=== PATIENT | female | born 1995 | race Caucasian/White ===

== ENCOUNTER → 2017-04-18 03:05 | Observation (INO) ==
[2017-04-18 01:00] LABS: Bilirubin,Urine Negative (Negative); Blood,Urine Negative (Negative); Clarity,Urine Clear (Clear); Color,Urine Yellow (Yellow); Glucose,Urine (UA) Normal (Normal); Ketones,Urine Negative (Negative); Leukocyte Esterase,Urine Negative (Negative); Nitrite,Urine Negative (Negative); Protein,Urine Negative (Neg-Trace); Specific Gravity,Urine 1.006 (1.010-1.025); Urobilinogen,Urine Normal (Normal)
[2017-04-18 01:06] LABS: Amphetamine Screen,Urine Negative ng/mL (Cutoff=1000); Barbiturate Screen,Urine Negative ng/mL (Cutoff=200); Benzodiazepines Screen,Urine Negative ng/mL (Cutoff=200); Cannabinoid Screen,Urine Negative ng/mL (Cutoff = 50); Cocaine Screen,Urine Negative ng/mL (Cutoff= 300); Opiate Screen,Urine Negative ng/mL (Cutoff=300); Phencyclidine Screen,Urine Negative ng/mL (Cutoff=25)
--- NOTE | 2017-04-18 01:59 | OB/GYN Progress Note ---
Date of Encounter: 04/18/17 Time of Encounter: 01:56 - Assessment and Plan (1) 38 weeks gestation of Current Visit: No Status: Acute Place on observation for labor evaluation. Monitor FHTs, contractions, serial cervical exams. If no cervical change, will discharge home with precautions. Subjective - Subjective Principal diagnosis: Uterine Contractions Interval history: Shanita Albert, 22, , at 38+3, presents with new onset contractions, intermittent every few minutes. Pt reports good movement of Tracy. Denies loss of fluid, no spontaneous rupture of membranes. GBS negative, blood type B positive. Antepartum ROS: movement normal, contractions, no loss of fluid, no vaginal bleeding Objective - Vital Signs Vital Signs: Intake and Output 04/17/17 04/17/17 04/18/17 15:59 23:59 07:59 Other: Weight 62.596 kg Patient Weight 04/18/17 23:59 Weight 62.596 kg - Exam FHR: auscultation normal, category 1 FHR comments: baseline 130. moderate variability. Auscultation: bilateral: normal Abdomen: Present: gravid Cervical dilation: 4 Cervix effacement: 80 station: -3 - Labs Labs: Abnormal lab results Ur Specific [place] 1.006 (1.010-1.025) L 04/18/17 00:45
--- NOTE | 2017-04-18 06:58 | Discharge Summary ---
Date of Encounter: 04/18/17 Time of Encounter: 02:58 - Discharge Diagnosis (1) 38 weeks gestation of Priority: Primary Status: Acute Comments: Patient admitted for labor evaluation (2) False labor Priority: Secondary Status: Acute Comments: No cervical change after 3 hours. Discharged home, follow up with Dr. Solorio as scheduled. - Discharge Medications Home Medications: No Known Home Drugs 04/18/17 [History] Allergies/Adverse Reactions: 3 Allergy/AdvReac Type Severity Reaction Status Date / Time No Known Allergies Allergy Verified 04/18/17 00:53 Data Procedures and tests throughout hospitalization: Laboratory Tests 04/18/17 04/18/17 00:45 00:45 Urine Color Yellow Urine Clarity Clear Urine pH 7.0 Ur Specific [place] 1.006 L Urine Protein Negative Urine Glucose (UA) Normal Urine Ketones Negative Urine Blood Negative Urine Nitrite Negative Urine Bilirubin Negative Urine Urobilinogen Normal Ur Leukocyte Esterase Negative Ur Culture Indicated? NO Urine Opiates Screen Negative Ur Barbiturates Screen Negative Ur Phencyclidine Scrn Negative Ur Amphetamines Screen Negative U Benzodiazepines Scrn Negative Urine Cocaine Screen Negative U Marijuana (THC) Screen Negative Labs on day of discharge: Labs from last 24 hours 04/18/17 04/18/17 00:45 00:45 Urine Color Yellow Urine Clarity Clear Urine pH 7.0 Ur Specific [place] 1.006 L Urine Protein Negative Urine Glucose (UA) Normal Urine Ketones Negative Urine Blood Negative Urine Nitrite Negative Urine Bilirubin Negative Urine Urobilinogen Normal Ur Leukocyte Esterase Negative Ur Culture Indicated? NO Urine Opiates Screen Negative Ur Barbiturates Screen Negative Ur Phencyclidine Scrn Negative Ur Amphetamines Screen Negative U Benzodiazepines Scrn Negative Urine Cocaine Screen Negative U Marijuana (THC) Screen Negative Date of admission: 04/18/17 00:22 Discharging clinician: Gina Ferrer Anticipated date of discharge: 04/18/17 - Patient Status Disposition: Home, Self-Care Condition: Good - Discharge Instructions Additional Instructions: LABOR AND DELIVERY DISCHARGE INSTRUCTIONS Signs and Symptoms to be Reported to your Doctor Immediately: * Sudden gush, continuous or intermittent lead of fluid from vagina (note the time of gush and color of fluid) * Onset of bright red vaginal bleeding with or without pain (if you had a vaginal exam during this visit you may notice some dark red spotting. This is normal.) * Contractions that are 5 minutes apart (from the beginning of one contraction to the beginning of the next) and last 45-60 seonds; contractions that you can no longer walk, talk or laugh through. * A change in the baby's activity. This could be an increase or decrease in activity. * Severe headache which does not go away with tylenol. * Sudden swelling in the face, hands, arms and/or legs. * Upper abdominal pain - sometimes associated with heartburn or nausea and is not relieved by Maalox, Mylanta or Tums. * Kick Counts __ One hour after a meal, lay down on one side in a quiet place. Count the number of time the baby moves during an hour. If less than 6 movements, notify your physician Diet: *Force fluids, 8 to 10 tall glasses of fluid per day - may include popsicles and jello *Limit caffeine - this includes chocolate, coffee, tea, any soft drink containing such as all jered, Román Yellow and Mountain Dew Hospital Course WRAPPER AND PRESERVER Time Attestation: Total time spent providing and/or coordinating discharge services: Time Spent: Less than 30 minutes Exam - Other Additional findings: assessed per RN
== END | disposition home or self-care (01) ==
LOC: 1NENULAB
PROVIDERS: ADMIT Advanced Practice Midwife; ATTEND Advanced Practice Midwife

== ENCOUNTER 2017-04-20 07:17 | Inpatient (IN) ==
[2017-04-20 05:04] LABS: Basophils % 0.2 %; Eosinophils # 0.2 K/mcL (0.0-0.6); Eosinophils % 1.2 %; Hematocrit 33.9 % (35.3-44.9); Hemoglobin 11.5 g/dL (11.5-15.4); Immature Granulocytes % 0.7 % (0-4); Lymphocytes % 23.9 %; Mean Corpuscular HGB Conc 33.9 g/dL (31.6-35.5); Mean Corpuscular Hemoglobin 30.7 pg (28.0-33.3); Mean Corpuscular Volume 90.6 fL (83.0-100.0); Mean Platelet Volume 12.5 fL (9.4-12.4); Monocytes % 6.2 %; Neutrophils # 11.3 K/mcL (1.6-8.9); Platelet Count 214 K/mcL (140-400); Red Blood Count 3.74 M/mcL (3.82-4.97); Red Cell Distribution Width 12.9 % (11.5-14.5); Segmented Neutrophils % 67.8 %
[2017-04-20 05:15] LABS: Amphetamine Screen,Urine Negative ng/mL (Cutoff=1000); Barbiturate Screen,Urine Negative ng/mL (Cutoff=200); Benzodiazepines Screen,Urine Negative ng/mL (Cutoff=200); Cannabinoid Screen,Urine Negative ng/mL (Cutoff = 50); Cocaine Screen,Urine Negative ng/mL (Cutoff= 300); Opiate Screen,Urine Negative ng/mL (Cutoff=300); Phencyclidine Screen,Urine Negative ng/mL (Cutoff=25)
--- NOTE | 2017-04-20 05:55 | OB/GYN Procedure Note ---
Delivery - Delivery Date: 04/20/17 Provider: Almas hSahid Intrapartum events: none Delivery induction: none Delivery monitor: external FHT, external uterine Anesthesia: none Estimated Blood Loss: 300 - (s) Infant A Infant Delivery Date: 04/20/17 Delivery Time: 05:03 Presentation: vertex Position: OA Route of delivery: Gender: Female Viability: Viable Pounds: 7 at 1 minute: 8 at 5 mins: 9 Shoulder Dystocia: not encountered Specimens collected: cord blood Placenta: spontaneous Cord: true knot - Repair Episiotomy: none Laceration Description: None - Complications Delivery complications: none - Disposition Mom disposition: stable in LDR [place] disposition: stable in LDR - Comments Comments: Patient delivered a live female spontaneously over an intact perineum. Weight was 7 pounds and Apgars were 8 and 9. Placenta delivered spontaneously intact. Estimated blood loss was 300 mL. Mother and baby were bonding in delivery room.
--- NOTE | 2017-04-20 06:50 | OB/GYN History & Physical ---
Date of Encounter: 04/21/17 Time of Encounter: 05:30 Assessment and Plan (1) 38 weeks gestation of Current visit: No Status: Deleted Admit to labor and delivery. GBS negative, O positive. Pt arrives in active labor at 9 cm dilation, anticipate with Dr. Shahid. History of Present Illness Chief complaint: Active Labor HPI: Ms. Albert is a 22 year old female, , at 38+5, presents with active labor, contractions 2-3 minutes apart and intensifying. Pt reports good movement of Tracy, SROM. Labs: GBS negative. Other serologies negative. Rubella and VZV immune. Blood type B positive. Past Med Surg Social Fam HX - Past Medical History Medical history: no medical history Psychiatric history: no psych history - Past Surgical History Surgical History: no surgical history - Social History Smoking Status: Current every day smoker Packs per day: 1/4 pack a day Smokeless Tobacco Status: No Alcohol use: none Drug use: none - Family History Mother Adopted: No Family Member Ethnicity: Non- Living Status: Still Living Hx Family Cardiac Disorders: No Hx Family Respiratory Disorders: No Hx Family Cancer: No Hx Family GI Disorders: No Hx Family Endocrine Disorder: Yes (diabetes) Hx Family Neuromuscular Disorders: No Hx Family Neurologic Disorders: No Hx Family HEENT Disorders: No Hx Family Autoimmune Disorders: No Obstetrical History - Pregnancies : 4 Medications and Allergies No Known Home Drugs 04/18/17 [History] Ibuprofen [Motrin] 600 mg PO Q6HR PRN #30 tab 04/21/17 [Rx] Vit/FA 1 each PO DAILY tab 04/21/17 [Rx] 3 Allergy/AdvReac Type Severity Reaction Status Date / Time No Known Allergies Allergy Verified 04/18/17 00:53 Review of System OB - Constitutional Constitutional ROS IM: no headache(s), no malaise - Cardiovascular Cardiovascular: no chest pain - Respiratory Respiratory: no dyspnea - Gastrointestinal Gastrointestinal: no abdominal pain Exam - Constitutional Constitutional: well developed, well nourished - Neck Neck exam: full ROM - Lungs Respiratory exam: CTAB - Cardiovascular Cardiovascular exam: +S1, +S2 - Cervix Dilation: 9 Effacement: 100 Results Result Diagrams: 04/21/17 04:15 Abnormal lab results WBC 16.7 K/mcL (4.3-11.1) H 04/20/17 04:09 RBC 3.74 M/mcL (3.82-4.97) L 04/20/17 04:09 Hct 33.9 % (35.3-44.9) L 04/20/17 04:09 MPV 12.5 fL (9.4-12.4) H 04/20/17 04:09 Neutrophils # 11.3 K/mcL (1.6-8.9) H 04/20/17 04:09 All other labs normal. - VTE Reasons for not Prescribing Prophylaxis: Treatment not Indicated - Low risk for VTE
[~2017-04-20 07:17] MED LIST: Acetaminophen 325 MG TABLET PO PRN; Famotidine 20 MG/2 ML VIAL IVP PRN; Measles/Mumps/Rubella Vacc 0.5 ML VIAL SQ PRN; Metoclopramide 10 MG/2 ML VIAL IVP PRN; Naloxone 0.4 MG/ML INJ IVP PRN; Ondansetron 4 MG/2 ML VIAL IVP PRN; Oxytocin 20 units/ LR 1000 mL 20 UNIT/1,000 ML BAG IVC ONE; Oxytocin 20 units/ LR 1000 mL 20 UNIT/1,000 ML BAG IVC SCH; Penicillin G Potassium 5,000,000 UNIT in D5% in Water (Mini-Bag+) 100 ML IVPB ONE; Ringers Solution, Lactated 1,000 ML IVC SCH
[2017-04-20] MEDS ORDERED: Ondansetron 4 MG/2 ML VIAL IVP PRN (07:18)
[2017-04-20] MEDS ORDERED: Naloxone 0.4 MG/ML INJ IVP PRN (07:18)
[2017-04-20] MEDS ORDERED: Metoclopramide 10 MG/2 ML VIAL IVP PRN (07:18)
[2017-04-20] MEDS ORDERED: Ringers Solution, Lactated 1,000 ML IVC SCH (07:18)
[2017-04-20] MEDS ORDERED: Oxytocin 20 units/ LR 1000 mL 20 UNIT/1,000 ML BAG IVC ONE (07:22)
[2017-04-20] MEDS ORDERED: Acetaminophen 325 MG TABLET PO PRN (07:28)
[2017-04-20] MEDS ORDERED: Oxytocin 20 units/ LR 1000 mL 20 UNIT/1,000 ML BAG IVC SCH (07:30)
[2017-04-20] MEDS ORDERED: Penicillin G Potassium 2,500,000 UNIT in D5% in Water 100 ML IVPB SCH (08:00)
[2017-04-20] MEDS: Ibuprofen 600 MG TABLET PO PRN ×2 (08:25→21:26)
[2017-04-20] MEDS ORDERED: Prenatal Vit/FA 1 EACH TABLET PO SCH ×2 (09:00)
[2017-04-21 04:37] LABS: Basophils % 0.2 %; Eosinophils # 0.2 K/mcL (0.0-0.6); Eosinophils % 1.2 %; Hematocrit 32.4 % (35.3-44.9); Immature Granulocytes % 0.8 % (0-4); Lymphocytes # 3.5 K/mcL (0.6-4.6); Lymphocytes % 19.9 %; Mean Corpuscular Hemoglobin 31.2 pg (28.0-33.3); Mean Corpuscular Volume 91.8 fL (83.0-100.0); Mean Platelet Volume 12.7 fL (9.4-12.4); Monocytes # 0.9 K/mcL (0.0-1.3); Monocytes % 4.8 %; Platelet Count 211 K/mcL (140-400); Red Blood Count 3.53 M/mcL (3.82-4.97); Segmented Neutrophils % 73.1 %
--- NOTE | 2017-04-21 07:48 | OB/GYN Progress Note ---
Date of Encounter: 04/21/17 Time of Encounter: 07:45 - Assessment and Plan (1) Status post vaginal delivery Current Visit: Yes Status: Acute (2) Family planning advice Current Visit: Yes Status: Acute will prep patient for bilateral partial salpingectomy this am Subjective - Subjective Interval history: patient still desires BPS states does not want any more children states having min cramping and min bleeding Patient reports: appetite normal, voiding normally, pain well controlled, ambulating normally : doing well Objective - Latest Vital Signs Latest vital signs: Vital Signs Temp Pulse Pulse Resp BP Pulse Ox 04/21/17 04:00 98.3 F 73 14 113/70 96 04/20/17 21:30 80 16 04/20/17 20:20 98.2 F 87 14 108/69 97 04/20/17 16:10 98.8 F 65 16 119/73 99 04/20/17 09:30 97.8 F 80 14 111/66 99 04/20/17 08:29 98.7 F 56 56 12 113/67 Intake and Output 04/20/17 04/20/17 04/21/17 15:59 23:59 07:59 Intake Total 1790 / 1790 Output Total 500 / 500 1750 / 1750 900 / 900 Balance -500 / -500 40 / 40 -900 / -900 Intake: Oral 1790 / 1790 Output: Urine 500 / 500 1750 / 1750 900 / 900 Other: Stool Characteristics Normal for Patient Weight 56.88 kg Patient Weight 04/21/17 23:59 Weight 56.88 kg - Exam Lungs: bilateral: normal Chest: Normal S1, Normal S2 Extremities: Present: normal Abdomen: Present: normal appearance, soft Uterus: Present: normal Uterus Position: At Umbilicus - Labs Labs: Laboratory Results - last 24 hr 04/21/17 04:15 WBC 17.7 H RBC 3.53 L Hgb 11.0 L Hct 32.4 L MCV 91.8 MCH 31.2 MCHC 34.0 RDW 13.0 Plt Count 211 MPV 12.7 H Immature Gran % 0.8 Seg Neutrophils % 73.1 Lymphocytes % 19.9 Monocytes % 4.8 Eosinophils % 1.2 Basophils % 0.2 Neutrophils # 13.0 H Lymphocytes # 3.5 Monocytes # 0.9 Eosinophils # 0.2 Basophils # 0.0
[2017-04-21] MEDS ORDERED: ceFAZolin 2,000 MG in D5% in Water (Mini-Bag+) 100 ML IVPB ONE (07:49)
--- NOTE | 2017-04-21 08:19 | Anesthesia Evaluation PreOp ---
Date of Encounter: 04/21/17 Time of Encounter: 08:17 - Past History Planned Operation: BPS Cardiac History: Denies any Significant Hx Pulmonary History: Smoker, Pack/yr (10) BILINGUAL SPEECH LANGUAGE PATHOLOGIST History: Denies Any Significant HX Other Medical History: Denies Any Significant HX Anesthesia History: No Prior Anesthetic Complications : No Alcohol Use: none Drug use: none Medications and Allergies No Known Home Drugs 04/18/17 [History] 3 Allergy/AdvReac Type Severity Reaction Status Date / Time No Known Allergies Allergy Verified 04/18/17 00:53 - Meds/Allergy Pre-op Review Medications Reviewed: Yes Allergies Reviewed: Yes Beta Blockers on Current Med List: No Anesthesia Results - Labs 04/21/17 04:15 Anesthesia Exam Height: 1.5m Weight: 56.8kg NPO (# of Hours): 9 Pain Scale: 0 Pain Scale Used: Numeric (1 - 10) - HEENT Pupil (Motor): Pupils equal Mallampati: I Teeth: Normal Oral Opening: Greater than 3 - BILINGUAL SPEECH LANGUAGE PATHOLOGIST LOC: Oriented BILINGUAL SPEECH LANGUAGE PATHOLOGIST Motor: Normal RUE, Normal LUE, Normal RLE, Normal LLE, Normal Face BILINGUAL SPEECH LANGUAGE PATHOLOGIST Sensory: Normal: RUE, LUE, RLE, LLE, Face - Cardiac Rhythm: Regular Murmur: None JVD: No Carotid Bruit: No - Pulmonary Breath Sounds: bilateral Clear Respiratory Effort: Symmetrical Anesthesia Assess/Plan ASA Score: 2 Modified [place] Scale for Level of Consciousness: Cooperative, oriented, and tranquil Anesthetic Plan: General Autologous Blood: Yes Monitoring Plan: Standard Monitors Recovery Plan: PACU
[2017-04-21] MEDS ORDERED: *HR* FentaNYL (PF) 100 MCG/2 ML VIAL ONE (08:28)
[2017-04-21] MEDS ORDERED: *HR* Rocuronium Bromide 50 MG/5 ML VIAL ONE (08:28)
[2017-04-21] MEDS ORDERED: Lidocaine -MPF 2% 5 ML VIAL ONE (08:28)
[2017-04-21] MEDS ORDERED: *HR* Propofol 200 MG/20 ML VIAL IVP ONE (08:28)
[2017-04-21] MEDS ORDERED: *HR* Midazolam HCl 2 MG/2 ML VIAL ONE (08:28)
[2017-04-21] MEDS ORDERED: Dexamethasone 4 MG/ML VIAL ONE (08:28)
[2017-04-21] MEDS ORDERED: *HR* Succinylcholine 200 MG/10 ML VIAL IVP ONE (08:28)
[2017-04-21] MEDS ORDERED: Ondansetron 4 MG/2 ML VIAL ONE (08:28)
[2017-04-21] MEDS ORDERED: Lidocaine -MPF 4% 5 ML AMPUL ONE (08:33)
--- NOTE | 2017-04-21 09:20 | Operative Note ---
Date of procedure: 04/21/17 Pre-op diagnosis: Status post vaginal delivery, desires sterilization Post-op diagnosis: same Procedure: Bilateral partial salpingectomy Anesthesia: MATEOA Surgeon: Danyel Farris Schedule Announcer: Hector Ji (PGY1) Estimated blood loss (cc): 10 Specimen: portions of the right and left fellopian tube Condition: stable Disposition: other Procedure in Detail: Patient is a 22-year-old 4 para 3 status post vaginal delivery who desired tubal ligation. Patient states history shoulder and desires no more. The risks and benefits of a tubal ligation with findings of the patient with a failure rate of 5-8 per thousand with increased risk of ectopic if was to occur. Procedure: Patient was taken to the operating room and general anesthesia was found be adequate. She was placed in the dorsal supine position prepped and draped in usual fashion. A small infraumbilical incision was made with a scalpel and carried down through the underlying tissue to the fascia was identified. The fascia was nicked in midline extended laterally with the Estes scissors. The parietal peritoneum was identified tented up and entered sharply. 2 [place] retractors were placed to the incision the right fallopian tube was identified and grasped brought out through the incision followed out to the fimbriated end. At the ampullar region a 2 cm portion the tube was suture ligated with 0 plain 2 and then the knuckle of the tube was excised off. Good hemostasis was noted. In a similar fashion the left tube was identified grasped brought out through the incision followed to the fimbriated end. A 2 cm portion of this tube was then also suture ligated for the knuckle was excised. We had good hemostasis this tube was also returned to the abdomen. Both ovaries were visualized and noted be normal. The fascia was closed using 0 Vicryl in a running stitch and the skin was closed using 4-0 Vicryl and a subcutaneous, and a. All needles lap sponge counts were correct 3. Patient will be taken to the recovery room then to the floor once stable. She did receive preoperative antibiotics.
[2017-04-21] MEDS ORDERED: *HR* HYDROmorphone (PF) 1 MG/ML SYRINGE IVP PRN (09:24)
[2017-04-21] MEDS ORDERED: Albuterol 2.5 MG/3 ML NEBULIZER IH ONE (09:24)
[2017-04-21] MEDS ORDERED: Ondansetron 4 MG/2 ML VIAL IVP ONE (09:24)
[2017-04-21] MEDS ORDERED: Ringers Solution, Lactated 1,000 ML IVC SCH ×2 (09:30→09:38)
[2017-04-21] MEDS ORDERED: Ondansetron 4 MG/2 ML VIAL IVP PRN (09:38)
[2017-04-21] MEDS ORDERED: Ibuprofen 600 MG TABLET PO PRN (09:38)
[2017-04-21] MEDS ORDERED: Acetaminophen 325 MG TABLET PO PRN (09:38)
--- NOTE | 2017-04-21 09:39 | Anesthesia Evaluation Post Op ---
Date of Encounter: 04/21/17 Time of Encounter: 09:38 - Vital Signs Vital Signs: Vital Signs/O2 Sat/Glucose, Most Current Temp Pulse Resp BP 04/21/17 07:49 12 04/21/17 07:30 98.0 F 71 16 109/62 121/80 hr 85 spo2 95% - Lungs Lungs: Clear Ascult./Percussion - Airway Airway: Non-obstructed - Cardiovascular Regular Rate, Baseline Rhythm - Mental Status Mental Status: Alert & Oriented, Answers Appropriately - Pain Pain Scale: 10 (pt calm and resting, but states high pain. receiving IV pain meds) Pain Scale used: Numeric (1 - 10) - Nausea Vomiting Nausea Vomiting: Not Present - Hydration Hydration: NPO, Has not voided - Discharge PostOp Status: Transfer Patient to floor
--- NOTE | 2017-04-21 11:37 | Discharge Summary ---
Date of Encounter: 04/21/17 Time of Encounter: 11:32 - Discharge Diagnosis (1) Spontaneous vaginal delivery Priority: Primary Status: Acute Comments: Vital signs stable, pt s/p BPS 0900 reports superficial wound site discomfort, pain being managed adequately. Pt meeting milestones of ambulation, voiding, mild lochia. Baby being bottlefed, overnight apneic spell; being monitored 24hrs in nursery by pediatrics, VSS, no fever, no repeat episode, continue consult and home precautions education. Will discharge today. (2) Status post bilateral salpingectomy Priority: Secondary Status: Acute Comments: Pt stable in , no nausea, paresthesias, pain adequately controlled. - Discharge Medications Prescriptions: Ibuprofen [Motrin] 600 mg PO Q6HR PRN #30 tab PRN Reason: Pain Home Medications: No Known Home Drugs 04/18/17 [History] Ibuprofen [Motrin] 600 mg PO Q6HR PRN #30 tab 04/21/17 [Rx] Vit/FA 1 each PO DAILY tab 04/21/17 [Rx] Allergies/Adverse Reactions: 3 Allergy/AdvReac Type Severity Reaction Status Date / Time No Known Allergies Allergy Verified 04/18/17 00:53 Data Procedures and tests throughout hospitalization: Laboratory Tests 04/20/17 04/20/17 04/21/17 04:09 04:09 04:15 WBC 16.7 H 17.7 H RBC 3.74 L 3.53 L Hgb 11.5 11.0 L Hct 33.9 L 32.4 L MCV 90.6 91.8 MCH 30.7 31.2 MCHC 33.9 34.0 RDW 12.9 13.0 Plt Count 214 211 MPV 12.5 H 12.7 H Immature Gran % 0.7 0.8 Seg Neutrophils % 67.8 73.1 Lymphocytes % 23.9 19.9 Monocytes % 6.2 4.8 Eosinophils % 1.2 1.2 Basophils % 0.2 0.2 Neutrophils # 11.3 H 13.0 H Lymphocytes # 4.0 3.5 Monocytes # 1.0 0.9 Eosinophils # 0.2 0.2 Basophils # 0.0 0.0 Urine Opiates Screen Negative Ur Barbiturates Screen Negative Ur Phencyclidine Scrn Negative Ur Amphetamines Screen Negative U Benzodiazepines Scrn Negative Urine Cocaine Screen Negative U Marijuana (THC) Screen Negative Labs on day of discharge: Labs from last 24 hours 04/21/17 04:15 WBC 17.7 H RBC 3.53 L Hgb 11.0 L Hct 32.4 L MCV 91.8 MCH 31.2 MCHC 34.0 RDW 13.0 Plt Count 211 MPV 12.7 H Immature Gran % 0.8 Seg Neutrophils % 73.1 Lymphocytes % 19.9 Monocytes % 4.8 Eosinophils % 1.2 Basophils % 0.2 Neutrophils # 13.0 H Lymphocytes # 3.5 Monocytes # 0.9 Eosinophils # 0.2 Basophils # 0.0 Date of admission: 04/20/17 07:22 Primary care physician: PCP NONE - Patient Status Disposition: Home, Self-Care Condition: Good Functional capacity at discharge: independent ambulation Overall status at discharge: patient is progressing back to baseline - Discharge Instructions Follow Up With: NONE,PCP [Primary Care Provider] - Additional Instructions: Perineal Care: Always wipe front to back Change your pad frequently Use your yusuf bottle with warm water and spray front to back Do not douche, use tampons, have sexual intercourse or put anything in your vagina for 4-6 weeks after delivery Bleeding: Vaginal bleeding can last up to 6 weeks Your menstrual period may return as early as 6 weeks after you are discharged from the hospital [place]/Stitches Care: Vaginal Delivery Vaginal stitches will dissolve within 4-6 weeks Follow perineal care instructions Care Stitches will dissolve on their own If you have maurice, they will need to be removed in the doctors office within 5-7 days. You may shower with stitches or maurice Drip plan or soapy water over the incision to clean. Pat dry gently with a clean towel. Make sure you completely dry under the skin folds DO NOT USE powders, lotions, rubbing alcohol or hydrogen peroxide on or around your incision. This will slow your wound healing It is normal to have soreness, burning, tingling, itchiness and/or numbness as your incision heals Activity: Rest frequently Do not lift anything heavier than a gallon of milk, up to 10-15 pounds No driving for 1-2 weeks for Vaginal delivery No driving for 2-4 weeks for delivery Take stairs slowly, one at a time Gradually increase your daily activity until you are back to your normal routine Do not exercise until you have had your follow-up appointment Bathing: Take a shower daily Do not take a tub bath for the first 4 weeks Diet: Drink plenty of water and fruit juices Eat a well-balanced diet with foods high in fiber such as fruits and vegetables Depression: Your hormones have a major impact on your feelings and emotions. Hormone imbalance may cause changes in your mood, creating unfamiliar thoughts and actions. Support is available to help you understand and cope with these feelings and mood changes. If you answer yes to any of the following questions, please call your health care provider: Are you having trouble sleeping? Are you feeling isolated? Have you lost your appetite? Are you having thoughts of hurting yourself or others? WARNING SIGNS: Heavy bleeding from the vagina (blood is bright red and soaks a sanitary pad in an hour or less.) Passing a blood clot larger than your fist Discharge from the vagina that has a bad odor Temperature over 100.4 F, or if you feel cold and have chills An episiotomy site that is warm, swollen or oozing. Use a mirror if needed Urination (pee) that is painful, very red and swollen or leaking fluid An incision that is painful, very red and swollen and leaking fluid An incision that has come open Breasts that are painful or full with flu like symptoms Redness, warmth or swelling in the calf of your leg Trouble breathing, dizziness, visual disturbance or faintness *Notify your health care provider immediately or go to the nearest Emergency Room if you experience any of the above signs.* To contact the nurses station 24 hours a day, For non-urgent, routine questions, please call the office at - Diet and Activity Activity: resume usual activities as tolerated Diet: advance to your usual diet Hospital Course Reason for admission: active labor Delivery: Episiotomy: none Laceration: none Other procedures: tubal ligation complications: none Discharge diagnosis: IUP at term delivered [place] baby: female Hospital course: - Delivery Date: 04/20/17 Provider: Almas Shahid Intrapartum events: none Delivery induction: none Delivery monitor: external FHT, external uterine Anesthesia: none Estimated Blood Loss: 300 - Infant (s) Infant A Delivery Date: 04/20/17 Infant Delivery Time: 05:03 Presentation: vertex Position: OA Route of delivery: Gender: Female Viability: Viable Pounds: 7 at 1 minute: 8 at 5 mins: 9 Shoulder Dystocia: not encountered Specimens collected: cord blood Placenta: spontaneous Cord: true knot - Repair Episiotomy: none Laceration Description: None - Complications Delivery complications: none Bilateral partial salpingectomy 04/21/17 Anesthesia: GETA Surgeon: Danyel Farris Screen Tender Helper: Hector Ji (PGY1) Estimated blood loss (cc): 10 Specimen: portions of the right and left fallopian tube Condition: stable Time Attestation: Total time spent providing and/or coordinating discharge services: Exam - Constitutional Vitals: Temp Pulse Resp BP Pulse Ox 97.7 F 67 16 121/82 98 04/21/17 10:45 04/21/17 10:45 04/21/17 10:45 04/21/17 10:45 04/21/17 10:45 General appearance IM: A&O X 3 - Respiratory Respiratory exam: Present: CTAB - Cardiovascular Cardiovascular exam IM: Present: +S1, +S2. Absent: +S3, +S4 - GI/Abdominal Additional comments: Status post BPS 04/21/17; wound site clean at umbilicus, bandaged, dry - Uterus Position: 1 Finger Below Umbilicus - Extremities Exam Extremities exam IM: Present: full ROM - Neurological Exam Neurological exam: CN II-XII intact, oriented X3
[2017-04-21 12:51] VITALS: BP 121/71
[2017-04-22] MEDS ORDERED: Prenatal Vit/FA 1 EACH TABLET PO SCH (09:00)
== END 2017-04-21 14:20 | disposition home or self-care (01) | DRG 541 ==
LOC: 1NENULAB → 1NENUOBS 07:17
PROVIDERS: ADMIT Obstetrics & Gynecology; ATTEND Obstetrics & Gynecology